=== PATIENT | male | born 1940 | race Caucasian/White ===

== ENCOUNTER 2018-02-21 17:26 | Inpatient (IN) ==
[2018-02-21] MEDS ORDERED: Isovue-370 500 ML INFUS..BTL IV ONE (17:38)
[2018-02-21 17:52] LABS: Hemoglobin 14.5 g/dL (12.9-16.9); Mean Corpuscular HGB Conc 32.2 g/dL (31.6-35.5); Mean Corpuscular Hemoglobin 27.2 pg (28.0-33.3); Mean Corpuscular Volume 84.3 fL (83.0-100.0); Mean Platelet Volume 12.4 fL (9.4-12.4); Platelet Count 235 K/mcL (140-400); Red Blood Count 5.34 M/mcL (4.19-5.50); Red Cell Distribution Width 15.5 % (11.5-14.5)
[2018-02-21 18:02] LABS: INR 1.1
[2018-02-21 18:05] LABS: Activated Partial Thrombo Time 30.5 Seconds (26.0-36.0)
--- NOTE | 2018-02-21 18:15 | Emergency Department Note ---
Disposition Clinical Impression: Cerebellar infarct, BERTHA (acute kidney injury) Disposition: Admitted As Inpatient Condition: Good Referrals: Jeannie Au MD [Non-Partnered Physician] - Forms: ED Satisfaction Letter Time of Disposition: 20:47 General Adult HPI - General Chief complaint: ED Neuro Symptoms/Deficit Stated complaint: DIZZY// BLURRED VISION// N/V Time Seen by Provider: 02/21/18 17:38 Source: patient, family Mode of arrival: wheelchair Limitations: no limitations Nursing Notes Reviewed: Yes Vital Signs Reviewed: Yes - History of Present Illness HPI Narrative: Male patient presenting to emergency [place] today complaining of dizziness feeling. He was seen earlier today at [facility] and had a CT of his head as well as an EKG and lab work done that the daughter and the patient reported as being "normal." He was getting out of bed this morning whenever he felt very dizzy and fell down. He struck his head. He is on Plavix and aspirin. Denies any syncope. She denies any pain to his extremities at this time. He is mentating appropriately with an NIH of 0. No slurred speech. Patient does complain of he does occasionally feel like everything is spinning. He also complains of blurry vision to his left eye. Patient's pupils are constricted. He denies any fevers or chills. Denies any shortness of breath or chest pain. He denies any loss of vision. He denies any swelling to his extremities. No history of previous stroke. Denies any trouble urinating or defecating. No blood in his urine or stool. No dark stools. Pain Scale: 2 - Related Data Allergies Allergy/AdvReac Type Severity Reaction Status Date / Time No Known Allergies Allergy Verified 02/21/18 17:51 All systems ED: reviewed and negative except as stated. Review of Systems: As Per HPI Past Medical History - Past Medical History Attestation: Yes The following information was validated with the patient. Source: patient Medical history: Reports: hyperlipidemia, hypertension, myocardial infarction Psychiatric history: Reports: no psych history - Social History Smoking Status: Current every day smoker Smokeless Tobacco Status: No Alcohol use: Reports: none Drug use: Reports: none Physical Exam - General Limitations: no limitations General appearance: alert, in no apparent distress - Head Head exam: atraumatic, normocephalic, normal inspection - Eye Eye exam: Present: normal appearance, PERRL, EOMI - ENT ENT exam: normal exam, normal oropharynx, mucous membranes moist - Neck Neck exam: Present: normal inspection, full ROM, trachea midline - Chest Chest inspection: Present: normal inspection, symmetric chest wall rise - Respiratory Respiratory exam: Present: normal lung sounds bilaterally. Absent: respiratory distress, accessory muscle use - Cardiovascular Cardiovascular exam: Present: regular rate, normal rhythm, normal heart sounds - Abdominal Exam Abdominal exam: Present: soft, Non-Tender. Absent: tenderness, distention, guarding, rebound, rigidity, organomegaly, Callahan's sign, Rovsing's sign, tenderness at McBurney's Point - Extremities Exam Extremities exam: Present: normal inspection, full ROM, normal capillary refill. Absent: tenderness, pedal edema - Back Exam Back exam: Present: normal inspection, full ROM. Absent: tenderness - Neurological Exam Neurological exam: Present: alert, oriented X3, CN II-XII intact, other (good finger to nose and good [id number] bilaterally. Pupils are equal and reactive to light). Absent: motor sensory deficit - Psychiatric Psychiatric exam: Present: normal affect, normal mood. Absent: anxious - Skin Skin exam: Present: warm, dry, intact, normal color. Absent: rash, cyanosis, diaphoresis Course Course Narrative: Male patient denies any vision loss but does report vertiginous symptoms. We did get a MRI of patient's head due to his vertiginous complaint. This did show a punctate acute lacunar infarct in the cerebellum. I discussed this with the neurologist here as well as the hospitalist. We will admit patient to the hospital for new acute stroke. We did provide him with aspirin. He had an NIH of 0 whenever he came in and so has an NIH of 0. He is mentating appropriately with a GCS of 15. Does not appear to be in any acute distress. Other lab workup was significant for an BERTHA we did initially order a CT of his head tenisha ography however we canceled the secondary to his BERTHA. We will admit patient to hospital at this time. - Consultations Consultation #1: I spoke with Dr Booth. He is agreeable to keep the patient here. He states he will see the patient consult morning. He is requesting that we do keep the patient and as a stroke. Provide the patient with aspirin and do neuro checks. Time: 20:09 Vital Signs Temperature 97.4 F L 02/21/18 17:30 Pulse Rate 71 02/21/18 17:30 Respiratory Rate 18 02/21/18 17:30 Blood Pressure 153/87 02/21/18 17:30 O2 Sat by Pulse Oximetry 98 02/21/18 17:30 Temperature 97.4 F L 02/21/18 17:38 Pulse Rate 70 02/21/18 19:41 Respiratory Rate 16 02/21/18 17:38 Blood Pressure 188/77 02/21/18 19:41 O2 Sat by Pulse Oximetry 98 02/21/18 17:38 Oxygen Delivery Oxygen Delivery Room Air Medical Decision Making - Medical Records Medical records reviewed: Yes I reviewed the patient's medical records. - Lab Data Lab results reviewed: Yes I reviewed the patient's lab results. Result diagrams: 02/21/18 17:44 02/21/18 17:44 Lab Results 02/21/18 02/21/18 02/21/18 Range/Units 17:44 17:44 17:44 WBC 15.4 H (4.3-11.1) K/mcL RBC 5.34 (4.19-5.50) M/mcL Hgb 14.5 (12.9-16.9) g/dL Hct 45.0 (37.5-50.1) % MCV 84.3 (83.0-100.0) fL MCH 27.2 L (28.0-33.3) pg MCHC 32.2 (31.6-35.5) g/dL RDW 15.5 H (11.5-14.5) % Plt Count 235 (140-400) K/mcL MPV 12.4 (9.4-12.4) fL PT 12.0 (9.4-12.1) Seconds INR 1.1 APTT 30.5 (26.0-36.0) Seconds Sodium 139 (136-145) mEq/L Potassium 4.8 (3.5-5.1) mEq/L Chloride 104 (98-107) mEq/L Carbon Dioxide 23 (23-29) mEq/L BUN 28 H (8-23) mg/dL Creatinine 1.81 H (0.70-1.30) mg/dL Est GFR ( Amer) 44 L (> 60) Est GFR (Non-Af Amer) 36 L (> 60) BUN/Creatinine Ratio 15 (6-26) Glucose 130 H (70-105) mg/dL Calculated Osmolality 295 (280-300) Calcium 10.7 H (8.6-10.3) mg/dL Troponin I 0.03 (< 0.04) ng/mL Urine Color (Yellow) Urine Clarity (Clear) Urine pH (5.0-8.0) pH Units Ur Specific [place] (1.010-1.025) Urine Protein (Neg-Trace) mg/dL Urine Glucose (UA) (Normal) mg/dL Urine Ketones (Negative) mg/dL Urine Blood (Negative) Urine Nitrite (Negative) Urine Bilirubin (Negative) Urine Urobilinogen (Normal) mg/dL Ur Leukocyte Esterase (Negative) Urine Opiates Screen (Kpzlai=749) ng/mL Ur Barbiturates Screen (Mujoxb=036) ng/mL Ur Phencyclidine Scrn (Cutoff=25) ng/mL Ur Amphetamines Screen (Isehuv=1256) ng/mL U Benzodiazepines Scrn (Vtotil=522) ng/mL Urine Cocaine Screen (Cutoff= 300) ng/mL U Marijuana (THC) Screen (Cutoff = 50) ng/mL Ur Drug Screen Interp Ethyl Alcohol < 10 (Less than 10) mg/dL 02/21/18 02/21/18 Range/Units 18:23 18:23 WBC (4.3-11.1) K/mcL RBC (4.19-5.50) M/mcL Hgb (12.9-16.9) g/dL Hct (37.5-50.1) % MCV (83.0-100.0) fL MCH (28.0-33.3) pg MCHC (31.6-35.5) g/dL RDW (11.5-14.5) % Plt Count (140-400) K/mcL MPV (9.4-12.4) fL PT (9.4-12.1) Seconds INR APTT (26.0-36.0) Seconds Sodium (136-145) mEq/L Potassium (3.5-5.1) mEq/L Chloride (98-107) mEq/L Carbon Dioxide (23-29) mEq/L BUN (8-23) mg/dL Creatinine (0.70-1.30) mg/dL Est GFR ( Amer) (> 60) Est GFR (Non-Af Amer) (> 60) BUN/Creatinine Ratio (6-26) Glucose (70-105) mg/dL Calculated Osmolality (280-300) Calcium (8.6-10.3) mg/dL Troponin I (< 0.04) ng/mL Urine Color Yellow (Yellow) Urine Clarity Clear (Clear) Urine pH 5.5 (5.0-8.0) pH Units Ur Specific [place] >= 1.030 H (1.010-1.025) Urine Protein 100 H (Neg-Trace) mg/dL Urine Glucose (UA) Normal (Normal) mg/dL Urine Ketones Trace H (Negative) mg/dL Urine Blood Negative (Negative) Urine Nitrite Negative (Negative) Urine Bilirubin Small H (Negative) Urine Urobilinogen Normal (Normal) mg/dL Ur Leukocyte Esterase Small H (Negative) Urine Opiates Screen Negative (Sgreiv=460) ng/mL Ur Barbiturates Screen Negative (Dgjjwc=383) ng/mL Ur Phencyclidine Scrn Negative (Cutoff=25) ng/mL Ur Amphetamines Screen Negative (Eivgjn=1215) ng/mL U Benzodiazepines Scrn Negative (Ryxjnp=579) ng/mL Urine Cocaine Screen Negative (Cutoff= 300) ng/mL U Marijuana (THC) Screen Negative (Cutoff = 50) ng/mL Ur Drug Screen Interp See Below Ethyl Alcohol (Less than 10) mg/dL - Radiology Data Radiology results reviewed: Yes I reviewed the patient's radiology results. Chest X-Ray 02/21/18 17:38 IMPRESSION: 1. Suboptimal exam, expiratory phase of respiration. 2. Bibasilar interstitial nodular densities may be related to pneumonitis but are nonspecific. Follow-up full inspiration PA and lateral chest may be useful for better characterization of pulmonary findings. D/ / Thomas Fontenot / Thomas Fontenot Interpreting Provider: Thomas Fontenot Head CT 02/21/18 17:38 IMPRESSION: No acute intracranial abnormality. Senescent changes with parenchymal volume loss sequela of mild chronic microvascular ischemic changes. D/ / Enedina Pearl MD / Enedina Pearl MD Interpreting Provider: Enedina Pearl MD Brain MRI 02/21/18 18:43 IMPRESSION: 1. Examination degraded by patient motion artifact. 2. Punctate acute lacunar infarction in the right cerebellum. No associated hemorrhage. 3. Parenchymal volume loss and sequela of chronic microvascular ischemic changes and old bilateral basal ganglia lacunar infarctions. D/ / Enedina Pearl MD / Enedina Pearl MD Interpreting Provider: Enedina Pearl MD - EKG Data EKG #1 EKG attestation: Yes I reviewed and interpreted this EKG. EKG results narrative: Normal sinus rhythm at a rate of 73. PA interval is 151. QRS duration is 106. QT is 47. QTC is 449. No signs of acute ischemia. Significant amount of artifact. Good R-wave progression.
[2018-02-21 18:18] LABS: BUN/Creatinine Ratio 15 (6-26); Blood Urea Nitrogen 28 mg/dL (8-23); Calcium 10.7 mg/dL (8.6-10.3); Carbon Dioxide 23 mEq/L (23-29); Chloride 104 mEq/L (98-107); Ethanol < 10 mg/dL (Less than 10); Glucose 130 mg/dL (70-105); Osmolality,Calculated 295 (280-300); Potassium 4.8 mEq/L (3.5-5.1); Sodium 139 mEq/L (136-145); Troponin I 0.03 ng/mL (< 0.04); eGFR For Non-African Americans 36 (> 60)
[2018-02-21 19:00] LABS: Bilirubin,Urine Small (Negative); Blood,Urine Negative (Negative); Clarity,Urine Clear (Clear); Color,Urine Yellow (Yellow); Glucose,Urine (UA) Normal (Normal); Ketones,Urine Trace mg/dL (Negative); Leukocyte Esterase,Urine Small (Negative); Nitrite,Urine Negative (Negative); PH,Urine 5.5 pH Units (5.0-8.0); Protein,Urine 100 mg/dL (Neg-Trace); Specific Gravity,Urine >= 1.030 (1.010-1.025); Urobilinogen,Urine Normal (Normal)
[2018-02-21 19:01] LABS: Amphetamine Screen,Urine Negative ng/mL (Cutoff=1000); Barbiturate Screen,Urine Negative ng/mL (Cutoff=200); Benzodiazepines Screen,Urine Negative ng/mL (Cutoff=200); Cannabinoid Screen,Urine Negative ng/mL (Cutoff = 50); Cocaine Screen,Urine Negative ng/mL (Cutoff= 300); Opiate Screen,Urine Negative ng/mL (Cutoff=300); Phencyclidine Screen,Urine Negative ng/mL (Cutoff=25)
[2018-02-21 19:07] LABS: Hyaline Casts,Urine Few per lpf (None-Few); Squamous Epithelial Cell,Urine Many per lpf (None-Few); WBC,Urine 30-50 per hpf (0-3)
[2018-02-21] MEDS ORDERED: Aspirin 325 MG TABLET PO ONE (19:53)
--- NOTE | 2018-02-21 20:03 | Emergency Department Note ---
Disposition Clinical Impression: Cerebellar infarct Disposition: Admitted As Inpatient Forms: ED Satisfaction Letter General Adult HPI - General Chief complaint: ED Neuro Symptoms/Deficit Stated complaint: DIZZY// BLURRED VISION// N/V Time Seen by Provider: 02/21/18 17:38 Source: patient, family Mode of arrival: wheelchair Limitations: no limitations - History of Present Illness Pain Scale: 0 - Related Data Allergies Allergy/AdvReac Type Severity Reaction Status Date / Time No Known Allergies Allergy Verified 02/21/18 17:51 Past Medical History - Past Medical History Medical history: Reports: hyperlipidemia, hypertension, myocardial infarction Psychiatric history: Reports: no psych history - Social History Smoking Status: Current every day smoker Smokeless Tobacco Status: No Alcohol use: Reports: none Drug use: Reports: none Physical Exam - General Limitations: no limitations General appearance: alert, in no apparent distress Course Vital Signs Temperature 97.4 F L 02/21/18 17:30 Pulse Rate 71 02/21/18 17:30 Respiratory Rate 18 02/21/18 17:30 Blood Pressure 153/87 02/21/18 17:30 O2 Sat by Pulse Oximetry 98 02/21/18 17:30 Temperature 97.4 F L 02/21/18 17:38 Pulse Rate 70 02/21/18 19:41 Respiratory Rate 16 02/21/18 17:38 Blood Pressure 188/77 02/21/18 19:41 O2 Sat by Pulse Oximetry 98 02/21/18 17:38 Oxygen Delivery Oxygen Delivery Room Air Medical Decision Making - Lab Data Result diagrams: 02/21/18 17:44 02/21/18 17:44 Lab Results 02/21/18 02/21/18 02/21/18 Range/Units 17:44 17:44 17:44 WBC 15.4 H (4.3-11.1) K/mcL RBC 5.34 (4.19-5.50) M/mcL Hgb 14.5 (12.9-16.9) g/dL Hct 45.0 (37.5-50.1) % MCV 84.3 (83.0-100.0) fL MCH 27.2 L (28.0-33.3) pg MCHC 32.2 (31.6-35.5) g/dL RDW 15.5 H (11.5-14.5) % Plt Count 235 (140-400) K/mcL MPV 12.4 (9.4-12.4) fL PT 12.0 (9.4-12.1) Seconds INR 1.1 APTT 30.5 (26.0-36.0) Seconds Sodium 139 (136-145) mEq/L Potassium 4.8 (3.5-5.1) mEq/L Chloride 104 (98-107) mEq/L Carbon Dioxide 23 (23-29) mEq/L BUN 28 H (8-23) mg/dL Creatinine 1.81 H (0.70-1.30) mg/dL Est GFR ( Amer) 44 L (> 60) Est GFR (Non-Af Amer) 36 L (> 60) BUN/Creatinine Ratio 15 (6-26) Glucose 130 H (70-105) mg/dL Calculated Osmolality 295 (280-300) Calcium 10.7 H (8.6-10.3) mg/dL Troponin I 0.03 (< 0.04) ng/mL Urine Color (Yellow) Urine Clarity (Clear) Urine pH (5.0-8.0) pH Units Ur Specific [place] (1.010-1.025) Urine Protein (Neg-Trace) mg/dL Urine Glucose (UA) (Normal) mg/dL Urine Ketones (Negative) mg/dL Urine Blood (Negative) Urine Nitrite (Negative) Urine Bilirubin (Negative) Urine Urobilinogen (Normal) mg/dL Ur Leukocyte Esterase (Negative) Urine Opiates Screen (Lqwksz=183) ng/mL Ur Barbiturates Screen (Loople=908) ng/mL Ur Phencyclidine Scrn (Cutoff=25) ng/mL Ur Amphetamines Screen (Nroqhe=5845) ng/mL U Benzodiazepines Scrn (Vvlcmv=188) ng/mL Urine Cocaine Screen (Cutoff= 300) ng/mL U Marijuana (THC) Screen (Cutoff = 50) ng/mL Ur Drug Screen Interp Ethyl Alcohol < 10 (Less than 10) mg/dL 02/21/18 02/21/18 Range/Units 18:23 18:23 WBC (4.3-11.1) K/mcL RBC (4.19-5.50) M/mcL Hgb (12.9-16.9) g/dL Hct (37.5-50.1) % MCV (83.0-100.0) fL MCH (28.0-33.3) pg MCHC (31.6-35.5) g/dL RDW (11.5-14.5) % Plt Count (140-400) K/mcL MPV (9.4-12.4) fL PT (9.4-12.1) Seconds INR APTT (26.0-36.0) Seconds Sodium (136-145) mEq/L Potassium (3.5-5.1) mEq/L Chloride (98-107) mEq/L Carbon Dioxide (23-29) mEq/L BUN (8-23) mg/dL Creatinine (0.70-1.30) mg/dL Est GFR ( Amer) (> 60) Est GFR (Non-Af Amer) (> 60) BUN/Creatinine Ratio (6-26) Glucose (70-105) mg/dL Calculated Osmolality (280-300) Calcium (8.6-10.3) mg/dL Troponin I (< 0.04) ng/mL Urine Color Yellow (Yellow) Urine Clarity Clear (Clear) Urine pH 5.5 (5.0-8.0) pH Units Ur Specific [place] >= 1.030 H (1.010-1.025) Urine Protein 100 H (Neg-Trace) mg/dL Urine Glucose (UA) Normal (Normal) mg/dL Urine Ketones Trace H (Negative) mg/dL Urine Blood Negative (Negative) Urine Nitrite Negative (Negative) Urine Bilirubin Small H (Negative) Urine Urobilinogen Normal (Normal) mg/dL Ur Leukocyte Esterase Small H (Negative) Urine Opiates Screen Negative (Yuneev=541) ng/mL Ur Barbiturates Screen Negative (Cazwrh=527) ng/mL Ur Phencyclidine Scrn Negative (Cutoff=25) ng/mL Ur Amphetamines Screen Negative (Bntnsi=7249) ng/mL U Benzodiazepines Scrn Negative (Pkanbz=811) ng/mL Urine Cocaine Screen Negative (Cutoff= 300) ng/mL U Marijuana (THC) Screen Negative (Cutoff = 50) ng/mL Ur Drug Screen Interp See Below Ethyl Alcohol (Less than 10) mg/dL Attestation Statement - Attestation Attestation: I examined this patient and my medical decision-making was reviewed with the Resident Physician. I agree with the documented findings, disposition and treatment plan as described except to the extent set forth below. 77 year old male presemts with vertiginous feelings that startd about 1300 today s/p having a fall yesterday and being evaluated at [facility] with negative head and neck Ct. It appears he has a punctuate lacunar infarct in the cerebellum. We will admit to [facility]
[2018-02-21 20:19] LABS: Bacteria,Urine Few per hpf (None-Few); RBC,Urine 0-3 per hpf (0-3)
[2018-02-22] MEDS ORDERED: Naloxone 0.4 MG/ML INJ IVP PRN (01:35)
[2018-02-22] MEDS: *HR* Heparin 5,000 UNIT/ML VIAL SQ SCH ×2 (06:00→18:44)
[2018-02-22 06:11] LABS: Hematocrit 38.7 % (37.5-50.1); Mean Corpuscular HGB Conc 32.8 g/dL (31.6-35.5); Mean Corpuscular Hemoglobin 27.3 pg (28.0-33.3); Mean Corpuscular Volume 83.2 fL (83.0-100.0); Mean Platelet Volume 12.7 fL (9.4-12.4); Platelet Count 202 K/mcL (140-400); Red Blood Count 4.65 M/mcL (4.19-5.50); Red Cell Distribution Width 15.5 % (11.5-14.5)
[2018-02-22 06:12] LABS: Hemoglobin 12.7 g/dL (12.9-16.9)
[2018-02-22 06:29] LABS: Calcium 9.6 mg/dL (8.6-10.3); Potassium 4.1 mEq/L (3.5-5.1)
[2018-02-22] MEDS ORDERED: 0.9 % Sodium Chloride 1,000 ML IVC ONE ×2 (07:21→10:29)
--- NOTE | 2018-02-22 07:25 | Internal Med History&Physical ---
Date of Encounter: 02/22/18 Time of Encounter: 00:50 Internal Medicine - H&P: HPI Chief complaint: Cerebrovascular accident Admitted From: Emergency Dept Plans for Post Hospital Care: Home History of present illness: Mr. Cancino is a 77 year old male Patient presented to the emergency room with initial complaints of dizziness. He had been seen at [facility] emergency room earlier for the same complaint and a CT was done of his head as well as an EKG. Ultimately these exams were reported as normal. He then presented to [facility] for continued dizziness. He states that he has had several falls at home including this morning where he is fell out of bed and hit his head on the door on his way [place] n. Denies losing consciousness as well as generalized weakness. He did indicate that he had some blurry vision in his left eye, but otherwise no complaints. In the ER CBC showed elevated white count of 15.4, and BMP showed elevated BUN and creatinine. Urinalysis was negative for blood and nitrites. There was small leukocyte esterase. Urine tox screen was negative. Chest x-ray was sub-optimal but may show interstitial nodular opacities. Head CT was negative for acute intracranial abnormalities. A brain MRI was ordered and showed an acute punctate lacunar infarction in the right cerebellum with no hemorrhage. Neurology was called from the emergency room who agreed to consult on the patient in the morning. Patient was admitted for further management. Upon my assessment patient states that he feels, "pretty good now," denies chest pain, nausea, vomiting, diarrhea, constipation and abdominal pain. He does smoke a pipe daily. Patient also states that the blurriness in his left eye has resolved and he denies unilateral limb weakness. He does have a slight speech impediment at baseline, which she states is no different now than it was before. Past Med Surg Social Fam HX - Past Medical History Medical history: hyperlipidemia, hypertension, myocardial infarction Psychiatric history: no psych history - Past Surgical History Surgical History: cataract Additional surgical history: Heart Stent x 2 - Social History Smoking Status: Current every day smoker Smokeless Tobacco Status: No Alcohol use: none Drug use: none - Family History Father Hx Family Neurologic Disorders: Yes (stroke) Internal Medicine - H&P: Meds Aspirin [Lo-Dose Aspirin EC] 81 mg PO DAILY 02/21/18 [History] Atorvastatin Calcium [Lipitor] 80 mg PO HS 02/21/18 [History] Clopidogrel [Plavix] 75 mg PO DAILY 02/21/18 [History] Diltiazem CD (24hr) [Cardizem CD] 240 mg PO DAILY 02/21/18 [History] Ergocalciferol (VITAMIN D2) [Vitamin D2] 5,000 unit PO DAILY 02/21/18 [History] Ergocalciferol (VITAMIN D2) [Vitamin D2] 5,000 unit PO DAILY 02/21/18 [History] Metoprolol Succinate [Toprol Xl] 100 mg PO DAILY 02/21/18 [History] Pantoprazole Sodium [Protonix] 40 mg PO DAILY 02/21/18 [History] Tamsulosin HCl [Flomax] 0.4 mg PO DAILY 02/21/18 [History] Allergy/AdvReac Type Severity Reaction Status Date / Time No Known Allergies Allergy Verified 02/21/18 17:51 All Systems PM: A 10-system review of systems was performed and is negative for pertinent findings except as documented above in the HPI. - Constitutional Vitals: Temp Pulse Resp BP Pulse Ox 98.7 F 62 17 157/78 95 02/22/18 06:56 02/22/18 06:56 02/22/18 06:56 02/22/18 06:56 02/22/18 06:56 General appearance: Present: A&O X 3, pleasant, answers questions appropriately Exam: As above - Head Head exam: Present: normal inspection - Eye Eye exam: Present: EOMI, normal appearance - Neck Neck exam general surgery: Absent: tenderness - Respiratory Respiratory exam: Present: CTAB. Absent: decreased breath sounds, respiratory distress, wheezes - Cardiovascular Cardiovascular exam: Present: RRR. Absent: diastolic murmur, systolic murmur - GI/Abdominal GI/Abdominal exam: Present: normal bowel sounds, soft. Absent: tenderness - Extremities Exam Extremities exam: Present: warm, radial pulses palpable and symmetrical. Absent: calf tenderness, pedal edema, tenderness - Neurological Exam Neurological exam: Present: no focal deficits, strengths equal and symetr throughout. Absent: motor sensory deficit, facial droop, speech deficit - Skin Skin exam: Present: dry, normal color, warm Internal Med - H&P Results - Labs CBC & Chem 7: 02/22/18 05:59 02/22/18 05:59 Labs: Short CBC 02/21/18 02/22/18 Range/Units 17:44 05:59 WBC 15.4 H 9.8 (4.3-11.1) K/mcL Hgb 14.5 12.7 L D (12.9-16.9) g/dL Hct 45.0 38.7 (37.5-50.1) % Plt Count 235 202 (140-400) K/mcL BMP 02/21/18 02/22/18 17:44 05:59 Sodium 139 138 Potassium 4.8 4.1 Chloride 104 108 H Carbon Dioxide 23 20 L BUN 28 H 28 H Creatinine 1.81 H 1.68 H Glucose 130 H 96 Calcium 10.7 H 9.6 Cardiac Enzymes 02/21/18 Range/Units 17:44 Troponin I 0.03 (< 0.04) ng/mL Urine 02/21/18 Range/Units 18:23 Urine Color Yellow (Yellow) Urine Clarity Clear (Clear) Urine pH 5.5 (5.0-8.0) pH Units Ur Specific [place] >= 1.030 H (1.010-1.025) Urine Protein 100 H (Neg-Trace) mg/dL Urine Glucose (UA) Normal (Normal) mg/dL - Impressions ITS Impressions Chest X-Ray 02/21/18 17:38 IMPRESSION: 1. Suboptimal exam, expiratory phase of respiration. 2. Bibasilar interstitial nodular densities may be related to pneumonitis but are nonspecific. Follow-up full inspiration PA and lateral chest may be useful for better characterization of pulmonary findings. D/ / Thomas Fontenot / Thomas Fontenot Interpreting Provider: Thomas Fontenot Head CT 02/21/18 17:38 IMPRESSION: No acute intracranial abnormality. Senescent changes with parenchymal volume loss sequela of mild chronic microvascular ischemic changes. D/ / Enedina Pearl MD / Enedina Pearl MD Interpreting Provider: Enedina Pearl MD Brain MRI 02/21/18 18:43 IMPRESSION: 1. Examination degraded by patient motion artifact. 2. Punctate acute lacunar infarction in the right cerebellum. No associated hemorrhage. 3. Parenchymal volume loss and sequela of chronic microvascular ischemic changes and old bilateral basal ganglia lacunar infarctions. D/ / Enedina Pearl MD / Enedina Pearl MD Interpreting Provider: Enedina Pearl MD - Assessment and plan (1) Cerebellar infarct Current Visit: Yes Status: Acute Assessment and plan: As evidenced by the patient's MRI. Neurology consulted from the ER. Follow up recommendations from neurology. Echocardiogram in AM Carotid dopplers in AM Neuro checks ASA PT/OT consult (2) BERTHA (acute kidney injury) Current Visit: Yes Status: Acute Assessment and plan: Elevated BUN and creatinine on initial lab work. Start IV fluids Recheck labs in AM (3) Blurry vision, left eye Current Visit: Yes Status: Acute Assessment and plan: Now resolved, could be related to stroke Neurology consult in AM (4) Current nicotine use Current Visit: Yes Status: Acute Assessment and plan: Patient smokes a pipe Encourage cessation (5) Opacity of lung on imaging study Current Visit: Yes Status: Acute Assessment and plan: Patient had a chest x-ray that showed possible interstitial nodular opacities. Radiology recommended getting a PA/lateral view. Patient does have elevated white count, but no other suspicion of pneumonia. Follow up repeat chest x-ray (6) DVT prophylaxis Current Visit: Yes Status: Acute Assessment and plan: Subcutaneous heparin - Time Spent With Patient Total time spent is greater than 50% in coordination of care (as documented) at patient's floor/unit and/or counseling patient: Greater than 35 minutes
--- NOTE | 2018-02-22 13:34 | Internal Med Progress Note ---
Hospitalist Progress Note - Encounter Date of Encounter: 02/22/18 Time of Encounter: 09:00 - Subjective Interval History: Mr. Cancino is a 77 year old male with known PMH of hyperlipidemia, hypertension, and CAD on ASA and Plavix pt presented to the emergency room with initial complaints of dizziness. He had been seen at [facility] emergency room earlier for the same complaint and a CT was done of his head as well as an EKG. Ultimately these exams were reported as normal. He then presented to [facility] for continued dizziness. He states that he has had several falls at home including this morning where he is fell out of bed and hit his head on the door on his way down. Denies losing consciousness as well as generalized weakness. Head CT was negative for acute intra cranial abnormalities. A brain MRI showed an acute punctate lacunar infarction in the right cerebellum with no hemorrhage. Pt is alert, awake and O x 3, denied any CP / SOB. Denied any weakness / no speech abnormalities. - Exam Vitals: Temp Pulse Resp BP Pulse Ox 98.3 F 60 17 130/82 95 02/22/18 11:36 02/22/18 11:36 02/22/18 06:56 02/22/18 11:36 02/22/18 06:56 Exam: Gen: Alert, awake, Oriented to time,place and person Chest: Diminished breath sounds B/L, No wheezing, No crackles, No rales Heart: S1S2+ RRR No murmurs Abd: Soft, NT, BS +, No organomegaly Ext: No edema, pulses are palpable, No calf tenderness Neuro : CNX 2-12 intact, No focal neuro deficits noticed Skin: No rash. - Assessment and Plan (1) BERTHA (acute kidney injury) Current Visit: Yes Status: Acute Assessment and Plan: Mostly due to dehydration Improving slowly Cont IVF avoid nephrotoxic medications (2) Cerebellar infarct Current Visit: Yes Status: Acute Assessment and Plan: Acute Rt cerebellar infarct noticed on Brain MRI Cont ASA and Plavix Cont statin Waiting on Neuro eval PT / OT recommend home PT / PT 2D Echo and Carotid doppler - P (3) Current nicotine use Current Visit: Yes Status: Acute Assessment and Plan: Counseled to quit smoking placed on nicotine patch (4) DVT prophylaxis Current Visit: Yes Status: Acute Assessment and Plan: on SQ Heparin (5) Opacity of lung on imaging study Current Visit: Yes Status: Acute Assessment and Plan: Will repeat CXR PA /Lat Pt denied any URI symptoms. (6) Hypertension Current Visit: Yes Status: Acute Assessment and Plan: resumed home meds - Time Spent with Patient Total time spent is greater than 50% in coordination of care (as documented) at patient's floor/unit and/or counseling patient: Internal Medicine: Result - Labs CBC & Chem 7: 02/22/18 05:59 02/22/18 05:59 Labs: Short CBC 02/21/18 02/22/18 Range/Units 17:44 05:59 WBC 15.4 H 9.8 (4.3-11.1) K/mcL Hgb 14.5 12.7 L D (12.9-16.9) g/dL Hct 45.0 38.7 (37.5-50.1) % Plt Count 235 202 (140-400) K/mcL BMP 02/21/18 02/22/18 17:44 05:59 Sodium 139 138 Potassium 4.8 4.1 Chloride 104 108 H Carbon Dioxide 23 20 L BUN 28 H 28 H Creatinine 1.81 H 1.68 H Glucose 130 H 96 Calcium 10.7 H 9.6 Cardiac Enzymes 02/21/18 Range/Units 17:44 Troponin I 0.03 (< 0.04) ng/mL Urine 02/21/18 Range/Units 18:23 Urine Color Yellow (Yellow) Urine Clarity Clear (Clear) Urine pH 5.5 (5.0-8.0) pH Units Ur Specific [place] >= 1.030 H (1.010-1.025) Urine Protein 100 H (Neg-Trace) mg/dL Urine Glucose (UA) Normal (Normal) mg/dL - ABG Interpretation ABG results: PT/INR, D-dimer PT 12.0 Seconds (9.4-12.1) 02/21/18 17:44 - Impressions Impressions Chest X-Ray 02/21/18 17:38 IMPRESSION: 1. Suboptimal exam, expiratory phase of respiration. 2. Bibasilar interstitial nodular densities may be related to pneumonitis but are nonspecific. Follow-up full inspiration PA and lateral chest may be useful for better characterization of pulmonary findings. D/ / Thomas Fontenot / Thomas Fontenot Interpreting Provider: Thomas Fontenot Head CT 02/21/18 17:38 IMPRESSION: No acute intracranial abnormality. Senescent changes with parenchymal volume loss sequela of mild chronic microvascular ischemic changes. D/ / Enedina Pearl MD / Enedina Pearl MD Interpreting Provider: Enedina Pearl MD Brain MRI 02/21/18 18:43 IMPRESSION: 1. Examination degraded by patient motion artifact. 2. Punctate acute lacunar infarction in the right cerebellum. No associated hemorrhage. 3. Parenchymal volume loss and sequela of chronic microvascular ischemic changes and old bilateral basal ganglia lacunar infarctions. D/ / Enedina Pearl MD / Enedina Pearl MD Interpreting Provider: Enedina Pearl MD Consult Discharge Plan - Plan Referrals: Jeannie Au MD [Primary Care Provider] - (6) Hypertension Qualifiers: Hypertension type: essential hypertension Qualified Code(s): I10 - Essential (primary) hypertension
--- NOTE | 2018-02-22 15:37 | Neurology - Consult Note ---
Date of Encounter: 02/22/18 Time of Encounter: 16:19 Assessment and Plan (1) Cerebellar infarct Current Visit: Yes Status: Acute It is my believe that the primary cause for the dizziness this patient was experiencing was is uncontrolled hypertension. His blood pressure was as high as 192/98 during this admission. However he did not experience nystagmus. He does not experience vertigo. The infarct is quite frankly too small to be symptomatic. It is only a punctate lesion in the right cerebellar hemisphere. However I do believe that his uncontrolled hypertension likely resulted in vasospasm causing the small infarct. He does have multiple stroke risk factors which include hyperlipidemia, hypertension, coronary artery disease as well as tobacco smoking. At this point he is pretty much back to his normal baseline and I would simply recommend following up with his primary care provider after discharge to monitor his risk factors. Perhaps home monitoring may also be of benefit. I did personally review the MRI scan of the brain. Echocardiogram and carotid Doppler studies are yet pending. I will reevaluate him at your discretion. History of Present Illness HPI: Mr. Cancino is a 77 year old male who was seen for neurologic consultation at the request of an ED physician regarding chief complaint of dizziness as well as a small punctate lesion in the right cerebellar hemisphere. Mr. carvajal apparently has been experiencing intermittent complaints of dizziness. He presented to an outside hospital with these complaints apparently had a CT scan of the head done in ultimately was sent to [facility] for further assessment and workup. He has had several falls at home most recently occurring on the morning of admission. Apparently he fell out of bed and did strike his head on the door on his way down. He is awake and alert upon arrival. MRI scan of the brain was obtained in the ED and did reveal a punctate infarct in the right cerebellar hemisphere. No other abnormalities were identified. Upon arrival patient's blood pressure was extremely elevated the h ighest was 192/98. He has had no further episodes of dizziness since admission. He denies actual vertigo or spinning. Past Med Surg Social Fam HX - Past Medical History Medical history: hyperlipidemia, hypertension, myocardial infarction Psychiatric history: no psych history - Past Surgical History Surgical History: cataract Additional surgical history: Heart Stent x 2 - Social History Smoking Status: Current every day smoker Smokeless Tobacco Status: No Alcohol use: none Drug use: none - Family History Father Hx Family Neurologic Disorders: Yes (stroke) Medications and Allergies Aspirin [Lo-Dose Aspirin EC] 81 mg PO DAILY 02/21/18 [History] Atorvastatin Calcium [Lipitor] 80 mg PO HS 02/21/18 [History] Clopidogrel [Plavix] 75 mg PO DAILY 02/21/18 [History] Diltiazem CD (24hr) [Cardizem CD] 240 mg PO DAILY 02/21/18 [History] Ergocalciferol (VITAMIN D2) [Vitamin D2] 5,000 unit PO DAILY 02/21/18 [History] Ergocalciferol (VITAMIN D2) [Vitamin D2] 5,000 unit PO DAILY 02/21/18 [History] Metoprolol Succinate [Toprol Xl] 100 mg PO DAILY 02/21/18 [History] Pantoprazole Sodium [Protonix] 40 mg PO DAILY 02/21/18 [History] Tamsulosin HCl [Flomax] 0.4 mg PO DAILY 02/21/18 [History] Allergy/AdvReac Type Severity Reaction Status Date / Time No Known Allergies Allergy Verified 02/21/18 17:51 All Systems: The remainder of the systems were reviewed and are negative Review of Systems: The balance of the systems review is negative. Physical Examination - Vital Signs Vital Signs: Initial Vital Signs Temp Pulse Resp BP Pulse Ox 97.4 F L 71 18 153/87 98 02/21/18 17:30 02/21/18 17:30 02/21/18 17:30 02/21/18 17:30 02/21/18 17:30 - Neurologic Detailed motor examination: full strength in all major muscle groups Motor examination - right side: 5/5: deltoids, biceps, triceps, wrist flexion, wrist extension, m1 armor crewman, hip flexors, tibialis Anterior, quadriceps, toe extension (EHL), plantarflexion Motor examination - left side: 5/5: deltoids, biceps, triceps, wrist flexion, wrist extension, hip flexors, m1 armor crewman, quadriceps, tibialis Anterior, toe extension (EHL), plantarflexion Mental Status Examination: awake, alert, oriented to person, oriented to place, oriented to time, follows commands appropriately, answers questions appropr iately, no agnosia, no aphasia, no aproxia Cranial nerve examination: PERRL, EOMI, visual hager intact, corneal reflexes brisk symmetrically, sensory to face intact, mastication intact, no facial asymmetry is present, no dysarthria, hearing is intact symmetrically, soft pal ate elevates bilaterally upon phonation, gag reflex intact, flexes SCM and trapezius muscles symmetrically with full power, tongue protrudes midline, no atrophy or facial fasiculations present Cerebellar examination: no dysmetria, performs finger to nose and heel to blum symmetrically without ataxia, no gait ataxia, no truncal ataxia, no difficulty with rapid alternating movements Results - Laboratory Findings CBC and BMP: 02/22/18 05:59 02/22/18 05:59 Abnormal lab findings: Abnormal lab results Hgb 12.7 g/dL (12.9-16.9) L D 02/22/18 05:59 MCH 27.3 pg (28.0-33.3) L 02/22/18 05:59 RDW 15.5 % (11.5-14.5) H 02/22/18 05:59 MPV 12.7 fL (9.4-12.4) H 02/22/18 05:59 Chloride 108 mEq/L (98-107) H 02/22/18 05:59 Carbon Dioxide 20 mEq/L (23-29) L 02/22/18 05:59 BUN 28 mg/dL (8-23) H 02/22/18 05:59 Creatinine 1.68 mg/dL (0.70-1.30) H 02/22/18 05:59 Est GFR ( Amer) 48 (> 60) L 02/22/18 05:59 Est GFR (Non-Af Amer) 40 (> 60) L 02/22/18 05:59 Ur Specific [place] >= 1.030 (1.010-1.025) H 02/21/18 18:23 Urine Protein 100 mg/dL (Neg-Trace) H 02/21/18 18:23 Urine Ketones Trace mg/dL (Negative) H 02/21/18 18:23 Urine Bilirubin Small (Negative) H 02/21/18 18:23 Ur Leukocyte Esterase Small (Negative) H 02/21/18 18:23 Urine Microscopic WBC 30-50 per hpf (0-3) H 02/21/18 18:23 Ur Squamous Epith Cells Many per lpf (None-Few) H 02/21/18 18:23 Ur Culture Indicated? NO. (NO) A 02/21/18 18:23 Consult Discharge Plan - Plan Referrals: Jeannie Au MD [Primary Care Provider] -
[2018-02-22] MEDS: Metoprolol XL (24 HR) Succ 50 MG TAB.ER.24H PO SCH (16:54)
[2018-02-22] MEDS: Diltiazem CD (24hr) 240 MG CAPSULE PO SCH (16:54)
[2018-02-22] MEDS: Aspirin Enteric Coated 81 MG Tablet PO SCH (17:03)
--- NOTE | 2018-02-22 21:03 | Electrocardiograph Report ---
[address] [place] [address] Test Date: 2018-02-21 Pat Name: Kervin Cancino Department: [id number] Room: [facility] Gender: M Regulator Tester: : 1940 Requested By: Delgado Hidalgo Order Number: [id number] Reading MD: Petra Valderrama Measurements Intervals [place] Rate: 73 P: 50 VT: 151 QRS: 13 QRSD: 106 T: -13 QT: 407 QTc: 449 Interpretive Statements Sinus rhythm Inferior infarct, recent Electronically Signed On 02-22-2018 21:02:02 EDT by Petra Valderrama
[2018-02-23] MEDS: *HR* Heparin 5,000 UNIT/ML VIAL SQ SCH ×2 (05:49→18:27)
[2018-02-23] MEDS ORDERED: 0.9 % Sodium Chloride 1,000 ML IVC SCH (08:30)
[2018-02-23] MEDS: Diltiazem CD (24hr) 240 MG CAPSULE PO SCH ×2 (08:50→08:51)
[2018-02-23] MEDS: Cholecalciferol (D-3) 1,000 UNIT TABLET PO SCH (08:50)
[2018-02-23] MEDS: Aspirin Enteric Coated 81 MG Tablet PO SCH (08:50)
[2018-02-23] MEDS: Metoprolol XL (24 HR) Succ 50 MG TAB.ER.24H PO SCH ×2 (08:50)
[2018-02-23] MEDS ORDERED: Metoprolol XL (24 HR) Succ 50 MG TAB.ER.24H PO SCH (09:00)
[2018-02-23] MEDS ORDERED: Diltiazem CD (24hr) 240 MG CAPSULE PO SCH (09:00)
--- NOTE | 2018-02-23 09:52 | Discharge Summary ---
Orders not resulted at time of discharge: Pending orders 02/23/18 08:30 retroperitoneal ultrasound - limited [US retroperitoneal limited] [US] Routine 02/23/18 08:58 Parathyroid Hormone Intact Routine Date of Encounter: 02/23/18 Time of Encounter: 08:45 - Discharge Diagnosis (1) Dizziness Priority: Primary Status: Acute (2) BERTHA (acute kidney injury) Priority: Secondary Status: Acute (3) Cerebellar infarct Priority: Secondary Status: Acute (4) DVT prophylaxis Priority: Secondary Status: Acute (5) Current nicotine use Priority: Secondary Status: Acute (6) Opacity of lung on imaging study Priority: Secondary Status: Acute (7) Hypertension Priority: Secondary Status: Acute Qualifiers: Hypertension type: essential hypertension Qualified Code(s): I10 - Essential (primary) hypertension Hospital course: Mr. Cancino is a 77 year old male. Hospital day 1. Pt has a chronic h/o HLD, HTN, CAD and previous NM. He presented intially to [facility] ED c/o dizziness. CT of the head and EKG were performed at [facility] and were normal. Pt then presented to [facility] ED for the same complaint of dizziness. He admitted to falling that morning and hitting his head on the way down. A CT of the head was performed and was negative. A brain MRI showed acute punctate lacunar infarct in the Right cerebellum without hemmorhage. Neurology was consulted and stated that the right cerebellar infarct was too small to be symptomatic and attributed the dizziness to uncontrolled HTN. Echocardiography was performed and revealed mild LV diastolic dysfunction, and mild valvular regurgitation in all 4 main cardiac valves. Carotid doppler showed minimal plaque throughout bilaterally. Chest X ray showed interstitial nodular opacities in bilateral lower lobes which have improved. LLL infiltrate was also seen. On initial lab work BUN and Cr were elevated. Pt received 2L of IVF. Cr improved to 1.79 from 1.81, BUN remains unchanged at 28. Today the patient states he is doing well and denies fever, H/A, vision changes, numbness, weakness, dizziness, SOB, chest pain/pressure, diaphoresis, NVD, abdominal pain, constipation, cough or wheezing. - Time Spent with Patient Total time spent providing and/or coordinating discharge services: - Discharge Medications Home Medications: Aspirin [Lo-Dose Aspirin EC] 81 mg PO DAILY 02/21/18 [History] Atorvastatin Calcium [Lipitor] 80 mg PO HS 02/21/18 [History] Clopidogrel [Plavix] 75 mg PO DAILY 02/21/18 [History] Diltiazem CD (24hr) [Cardizem CD] 240 mg PO DAILY 02/21/18 [History] Ergocalciferol (VITAMIN D2) [Vitamin D2] 5,000 unit PO DAILY 02/21/18 [History] Ergocalciferol (VITAMIN D2) [Vitamin D2] 5,000 unit PO DAILY 02/21/18 [History] Metoprolol Succinate [Toprol Xl] 100 mg PO DAILY 02/21/18 [History] Pantoprazole Sodium [Protonix] 40 mg PO DAILY 02/21/18 [History] Tamsulosin HCl [Flomax] 0.4 mg PO DAILY 02/21/18 [History] Allergies/Adverse Reactions: Allergy/AdvReac Type Severity Reaction Status Date / Time No Known Allergies Allergy Verified 02/21/18 17:51 Date of admission: 02/22/18 15:16 Primary care physician: Jeannie Au MD Consults: 02/21/18 20:03 Consult to Neurology [CONS] Stat Consulting Provider: [facility] Reason for Consult: cerebellar infarct Call Completed: Yes 02/21/18 20:28 Consult to Neurology [CONS] Stat Consulting Provider: [facility] Reason for Consult: punctate cerebellum infarct Time Notified: 20:29 Call Completed: Yes - Constitutional Vitals: Temp Pulse Resp BP Pulse Ox 98.5 F 70 17 139/60 94 02/23/18 07:15 02/23/18 07:15 02/23/18 07:15 02/23/18 07:15 02/23/18 07:15 General appearance: Present: A&O X 3, no acute distress - Respiratory Respiratory exam: Present: CTAB. Absent: wheezes - Cardiovascular Cardiovascular exam: Present: RRR, +S1, +S2. Absent: diastolic murmur, systolic murmur - GI/Abdominal GI/Abdominal exam: Present: normal bowel sounds, soft. Absent: distended, tenderness - Extremities Exam Additional comments: no leg edema bilaterally - Neurological Exam Neurological exam: Present: CN II-XII intact Additional comments: 5/5 strength in UE bilaterally - Skin Skin exam: Present: dry, warm - Patient Status Condition: Good - Discharge Instructions Instructions: How to Stop Smoking (DC), Ischemic Stroke (DC), Chronic Hyperte nsion (DC), Self Care Measures After a Stroke (DC) Follow Up With: Jeannie Au MD [Primary Care Provider] -
[2018-02-23 11:52] LABS: Basophils # 0.1 K/mcL (0.0-0.2); Basophils % 0.6 %; Eosinophils # 0.3 K/mcL (0.0-0.6); Eosinophils % 3.6 %; Hematocrit 38.7 % (37.5-50.1); Hemoglobin 12.4 g/dL (12.9-16.9); Immature Granulocytes % 0.3 % (0-4); Lymphocytes # 2.5 K/mcL (0.6-4.6); Lymphocytes % 28.4 %; Mean Corpuscular Hemoglobin 27.3 pg (28.0-33.3); Mean Corpuscular Volume 85.2 fL (83.0-100.0); Mean Platelet Volume 12.6 fL (9.4-12.4); Monocytes # 0.7 K/mcL (0.0-1.3); Monocytes % 7.6 %; Neutrophils # 5.2 K/mcL (1.6-8.9); Platelet Count 199 K/mcL (140-400); Red Blood Count 4.54 M/mcL (4.19-5.50); Red Cell Distribution Width 15.6 % (11.5-14.5); Segmented Neutrophils % 59.5 %
[2018-02-23 12:16] LABS: Potassium 4.2 mEq/L (3.5-5.1)
--- NOTE | 2018-02-23 13:49 | Internal Med Progress Note ---
<Mendez Shelley - Last Filed: 02/23/18 17:20> Hospitalist Progress Note - Encounter Date of Encounter: 02/23/18 - Exam Vitals: Temp Pulse Resp BP Pulse Ox 98 F 52 19 133/81 96 02/23/18 15:23 02/23/18 15:23 02/23/18 15:23 02/23/18 15:23 02/23/18 15:23 Exam: General: Alert, Oriented X3, NAD HEENT: normocephalic, atraumatic, eyes anicteric, mucosal membranes moist, neck supple Cardiovascular: RRR, +S1, +S2, no murmurs Respiratory: CTAB, no wheezing Abdomen: normal BSX4, soft, nondistended, nontender to palpation Extremities: no leg edema bilaterally Neuro: CN2-12 grossly intact, 5/5 strength of UE bilaterally, grossly sensation or extremities equal bilaterally. chronic left lower sided facial droop according to pt Skin: dry, warm, intact - Assessment and Plan (1) Dizziness Current Visit: Yes Status: Acute (2) Cerebellar infarct Current Visit: Yes Status: Acute (3) BERTHA (acute kidney injury) Current Visit: Yes Status: Acute (4) Current nicotine use Current Visit: Yes Status: Acute (5) Hypertension Current Visit: Yes Status: Acute (6) Opacity of lung on imaging study Current Visit: Yes Status: Acute (7) DVT prophylaxis Current Visit: Yes Status: Acute DVT Prophylaxis: Heparin SQ - Summary of Assessment and Plan Summary of Assessment and Plan: Plan was to discharge patient today, but this evening having bradycardia. Will follow overnight and can likely be discharged in the AM. - Time Spent with Patient Total time spent is greater than 50% in coordination of care (as documented) at patient's floor/unit and/or counseling patient: less than 15 minutes Plan of Care Discussed with: patient Internal Medicine: Result - Labs CBC & Chem 7: 02/23/18 11:37 02/23/18 11:37 Labs: Short CBC 02/23/18 Range/Units 11:37 WBC 8.7 (4.3-11.1) K/mcL Hgb 12.4 L (12.9-16.9) g/dL Hct 38.7 (37.5-50.1) % Plt Count 199 (140-400) K/mcL Neutrophils # 5.2 (1.6-8.9) K/mcL BMP 02/23/18 11:37 Sodium 138 Potassium 4.2 Chloride 108 H Carbon Dioxide 23 BUN 28 H Creatinine 1.79 H Glucose 93 Calcium 9.0 - ABG Interpretation ABG results: PT/INR, D-dimer PT 12.0 Seconds (9.4-12.1) 02/21/18 17:44 - Impressions Impressions Echocardiogram 02/22/18 06:18 Impressions: LVEF 40%. Global and regional LV systolic function. Mild left ventricular diastolic dysfunction. Normal right ventricular structure and function. Mild mitral regurgitation. Mild aortic regurgitation. Mild tricuspid regurgitation. Mild pulmonic regurgitation. No pulmonary hypertension. No evidence of PFO with agitated saline contrast. Left Ventricular Wall Motion: Rest Echo Findings The apex, apical inferior, mid inferior, basal inferior, apical anterior, mid anterior, basal anterior, apical septal, mid inferior septal, basal inferior septal, apical lateral, mid anterior lateral, basal anterior lateral, mid anterior septal, mid inferior lateral, basal anterior septal and basal inferior lateral mittal were hypokinetic. Findings: Study Quality * Technically adequate exam. ECG Findings * Normal sinus rhythm. Left Ventricle * Mild left ventricular diastolic dysfunction. * LVEF 40%. * Normal LV chamber size and wall thickness. Right Ventricle * Normal right ventricular structure and function. Left Atrium * Severely dilated left atrium. Right Atrium * Mildly dilated right atrium. Mitral Valve * Normal mitral valve structure. * No mitral stenosis. * Mild mitral annular calcification * Mild mitral regurgitation. Aortic Valve * Mild aortic regurgitation. * Trileaflet aortic valve. * No aortic stenosis. Tricuspid Valve * Mild tricuspid regurgitation. * Normal tricuspid valve structure. * Estimated RA pressure is 3 mmHg. * Estimated RVSP is 31 mmHg. * No pulmonary hypertension. Pulmonic Valve * Pulmonic valve is not well visualized. * No pulmonic stenosis. * Mild pulmonic regurgitation. Pulmonary Artery * Pulmonary artery not well visualized. Aorta * Normally sized aortic root. Pericardium * There is no pericardial effusion present. Interatrial Septum * No evidence of PFO by color Doppler. * No evidence of PFO with agitated saline contrast. IVC * Normal IVC dimensions and inspiratory collapse. Chest X-Ray 02/22/18 07:39 IMPRESSION: Less evident reticulonodular changes at the lung bases possibly due to a better inspiration. However, there is persistent opacification at the left lung base which could represent atelectasis or pneumonia. D/ / 02/22/2018 16:00:47 French Arguello MD / kinjal Interpreting Provider: French Arguello MD Consult Discharge Plan - Plan Instructions: How to Stop Smoking (DC), Ischemic Stroke (DC), Chronic Hypertension (DC), Self Care Measures After a Stroke (DC) Referrals: Jeannie Au MD [Primary Care Provider] - <Kaya Baltazar - Last Filed: 02/23/18 17:25> Hospitalist Progress Note - Encounter Date of Encounter: 02/23/18 Time of Encounter: 08:45 - Subjective Interval History: Mr. Cancino is a 77 year old male. Hospital day 1. Pt has a chronic h/o HLD, HTN, CAD and previous KS. He presented intially to [facility] ED c/o dizziness. CT of the head and EKG were performed at [facility] and were normal. [facility] for the same complaint of dizziness. He admitted to falling that morning and hitting his head on the way down. A CT of the head was performed and was negative. A brain MRI showed acute punctate lacunar infarct in the Right cerebellum without hemmorhage. Neurology was consulted and stated that the right cerebellar infarct was too small to be symptomatic and attributed the dizziness to uncontrolled HTN. Echocardiography was performed and revealed mild LV diastolic dysfunction, and mild valvular regurgitation in all 4 main cardiac valves. Carotid doppler showed minimal plaque throughout bilaterally. Chest X ray showed interstitial nodular opacities in bilateral lower lobes which have improved. LLL infiltrate was also seen. On initial lab work BUN and Cr were elevated most likely secondary to dehydration. Pt received 2L of IVF. Cr improved to 1.79 from 1.81, BUN remains unchanged at 28. Today the patient states he is doing well and denies fever, H/A, vision changes, numbness, weakness, dizziness, SOB, chest pain/pressure, diaphoresis, NVD, abdominal pain, constipation, cough or wheezing. Pt experienced asymptomatic bradycardia(pulse 52) in the afternoon d/t receiving cardizem and toprol yesterday. - Exam Vitals: Temp Pulse Resp BP Pulse Ox 97.6 F 50 17 146/87 95 02/23/18 11:04 02/23/18 11:04 02/23/18 11:04 02/23/18 11:04 02/23/18 11:04 Exam: General: AAOX3, NAD Cardiovascular: RRR, +S1, +S2, no murmurs Respiratory: CTAB, no wheezing Abdomen: normal BSX4, soft, nondistended, nontedner to palpation Extremities: no leg edema bilaterally Neuro: CN2-12 grossly intact, 5/5 strength of UE bilaterally, chronic left lower sided facial droop according to pt (no h/o previous stroke) Skin: dry, warm - Assessment and Plan (1) Dizziness Current Visit: Yes Status: Acute Assessment and Plan: Most likely secondary to uncontrolled HTN according to neurology. Today pt denies any complaints of dizziness 02/23/18 BP was 192/98 during admission, BP today is 146/87 Plan -toprol and cardizem held today d/t bradycardia -continue to monitor BP and pulse rate -f/u outpatient with PCP (2) BERTHA (acute kidney injury) Current Visit: Yes Status: Acute Assessment and Plan: Cr on 02/21/18 was 1.81, Cr on 02/22/18 was 1.68, Cr today was 1.79 BUN on 02/21/18 was 28 and remained unchanged today GFR on 02/21/18 was 36, GFR on 02/22/18 was 40, GFR on 02/23/18 was 37 PTH was 52 Plan: -retroperitoneal U/S ordered -IVF d/c -avoid nephrotoxic medications (3) Cerebellar infarct Current Visit: Yes Status: Acute Assessment and Plan: Brain MRI showed acute punctate lacunar infarct in right cerebellum without hemorrhage. 02/21/18 Neuro was consulted and stated that the infarct is too small to be symptomatic and was likely d/t vasospasm from uncontrolled HTN 02/22/18 Carotid Doppler showed minimal plaque throughout bilaterally 02/22/18 Echocardiogram showed mild LV diastolic dysfunction, and mild valvular regurgitation in all four main cardiac valves, LVEF 40% (compared to previous echo remains the same) 02/22/18 Plan: -f/u PCP monitor stroke risk factors per neuro -continue ASA, plavix and statin (4) Current nicotine use Current Visit: Yes Status: Acute Assessment and Plan: Plan: -counseled to quit smoking (5) Opacity of lung on imaging study Current Visit: Yes Status: Acute Assessment and Plan: Chest Xray showed bibasilar interstitial nodular opacities 02/21/18 Repeat chest Xray showed less evident reticulonodular changes, LLL opacification also seen 02/22/18 Today pt denied any respiratory symptoms Plan: -f/u with PCP (6) Hypertension Current Visit: Yes Status: Acute Assessment and Plan: BP on 02/22/18 was 154/83, BP today was 146/87 pulse today was 50 Plan -cardizem d/c -toprol witheld d/t bradycardia -f/u PCP (7) DVT prophylaxis Current Visit: Yes Status: Acute Assessment and Plan: Plan: -Heparin SQ - Time Spent with Patient Total time spent is greater than 50% in coordination of care (as documented) at patient's floor/unit and/or counseling patient: Internal Medicine: Result - Labs CBC & Chem 7: 02/23/18 11:37 02/23/18 11:37 Labs: Short CBC 02/23/18 Range/Units 11:37 WBC 8.7 (4.3-11.1) K/mcL Hgb 12.4 L (12.9-16.9) g/dL Hct 38.7 (37.5-50.1) % Plt Count 199 (140-400) K/mcL Neutrophils # 5.2 (1.6-8.9) K/mcL BMP 02/23/18 11:37 Sodium 138 Potassium 4.2 Chloride 108 H Carbon Dioxide 23 BUN 28 H Creatinine 1.79 H Glucose 93 Calcium 9.0 - ABG Interpretation ABG results: PT/INR, D-dimer PT 12.0 Seconds (9.4-12.1) 02/21/18 17:44 - Impressions Impressions Echocardiogram 02/22/18 06:18 Impressions: LVEF 40%. Global and regional LV systolic function. Mild left ventricular diastolic dysfunction. Normal right ventricular structure and function. Mild mitral regurgitation. Mild aortic regurgitation. Mild tricuspid regurgitation. Mild pulmonic regurgitation. No pulmonary hypertension. No evidence of PFO with agitated saline contrast. Left Ventricular Wall Motion: Rest Echo Findings The apex, apical inferior, mid inferior, basal inferior, apical anterior, mid anterior, basal anterior, apical septal, mid inferior septal, basal inferior septal, apical lateral, mid anterior lateral, basal anterior lateral, mid anterior septal, mid inferior lateral, basal anterior septal and basal inferior lateral mittal were hypokinetic. Findings: Study Quality * Technically adequate exam. ECG Findings * Normal sinus rhythm. Left Ventricle * Mild left ventricular diastolic dysfunction. * LVEF 40%. * Normal LV chamber size and wall thickness. Right Ventricle * Normal right ventricular structure and function. Left Atrium * Severely dilated left atrium. Right Atrium * Mildly dilated right atrium. Mitral Valve * Normal mitral valve structure. * No mitral stenosis. * Mild mitral annular calcification * Mild mitral regurgitation. Aortic Valve * Mild aortic regurgitation. * Trileaflet aortic valve. * No aortic stenosis. Tricuspid Valve * Mild tricuspid regurgitation. * Normal tricuspid valve structure. * Estimated RA pressure is 3 mmHg. * Estimated RVSP is 31 mmHg. * No pulmonary hypertension. Pulmonic Valve * Pulmonic valve is not well visualized. * No pulmonic stenosis. * Mild pulmonic regurgitation. Pulmonary Artery * Pulmonary artery not well visualized. Aorta * Normally sized aortic root. Pericardium * There is no pericardial effusion present. Interatrial Septum * No evidence of PFO by color Doppler. * No evidence of PFO with agitated saline contrast. IVC * Normal IVC dimensions and inspiratory collapse. Chest X-Ray 02/22/18 07:39 IMPRESSION: Less evident reticulonodular changes at the lung bases possibly due to a better inspiration. However, there is persistent opacification at the left lung base which could represent atelectasis or pneumonia. D/ / 02/22/2018 16:00:47 French Arguello MD / kinjal Interpreting Provider: French Arguello MD <Cailin Goel - Last Filed: 02/23/18 17:42> Hospitalist Progress Note - Encounter Date of Encounter: 02/23/18 Time of Encounter: 17:37 - Exam Vitals: Temp Pulse Resp BP Pulse Ox 98 F 52 19 133/81 96 02/23/18 15:23 02/23/18 15:23 02/23/18 15:23 02/23/18 15:23 02/23/18 15:23 - Assessment and Plan (1) Cerebellar infarct Current Visit: Yes Status: Acute (2) BERTHA (acute kidney injury) Current Visit: Yes Status: Acute (3) DVT prophylaxis Current Visit: Yes Status: Acute (4) Current nicotine use Current Visit: Yes Status: Acute (5) Opacity of lung on imaging study Current Visit: Yes Status: Acute (6) Hypertension Current Visit: Yes Status: Acute - Time Spent with Patient Total time spent is greater than 50% in coordination of care (as documented) at patient's floor/unit and/or counseling patient: Internal Medicine: Result - Labs CBC & Chem 7: 02/23/18 11:37 02/23/18 11:37 Labs: Short CBC 02/23/18 Range/Units 11:37 WBC 8.7 (4.3-11.1) K/mcL Hgb 12.4 L (12.9-16.9) g/dL Hct 38.7 (37.5-50.1) % Plt Count 199 (140-400) K/mcL Neutrophils # 5.2 (1.6-8.9) K/mcL BMP 02/23/18 11:37 Sodium 138 Potassium 4.2 Chloride 108 H Carbon Dioxide 23 BUN 28 H Creatinine 1.79 H Glucose 93 Calcium 9.0 - ABG Interpretation ABG results: PT/INR, D-dimer PT 12.0 Seconds (9.4-12.1) 02/21/18 17:44 - Impressions Impressions Echocardiogram 02/22/18 06:18 Impressions: LVEF 40%. Global and regional LV systolic function. Mild left ventricular diastolic dysfunction. Normal right ventricular structure and function. Mild mitral regurgitation. Mild aortic regurgitation. Mild tricuspid regurgitation. Mild pulmonic regurgitation. No pulmonary hypertension. No evidence of PFO with agitated saline contrast. Left Ventricular Wall Motion: Rest Echo Findings The apex, apical inferior, mid inferior, basal inferior, apical anterior, mid anterior, basal anterior, apical septal, mid inferior septal, basal inferior septal, apical lateral, mid anterior lateral, basal anterior lateral, mid anterior septal, mid inferior lateral, basal anterior septal and basal inferior lateral mittal were hypokinetic. Findings: Study Quality * Technically adequate exam. ECG Findings * Normal sinus rhythm. Left Ventricle * Mild left ventricular diastolic dysfunction. * LVEF 40%. * Normal LV chamber size and wall thickness. Right Ventricle * Normal right ventricular structure and function. Left Atrium * Severely dilated left atrium. Right Atrium * Mildly dilated right atrium. Mitral Valve * Normal mitral valve structure. * No mitral stenosis. * Mild mitral annular calcification * Mild mitral regurgitation. Aortic Valve * Mild aortic regurgitation. * Trileaflet aortic valve. * No aortic stenosis. Tricuspid Valve * Mild tricuspid regurgitation. * Normal tricuspid valve structure. * Estimated RA pressure is 3 mmHg. * Estimated RVSP is 31 mmHg. * No pulmonary hypertension. Pulmonic Valve * Pulmonic valve is not well visualized. * No pulmonic stenosis. * Mild pulmonic regurgitation. Pulmonary Artery * Pulmonary artery not well visualized. Aorta * Normally sized aortic root. Pericardium * There is no pericardial effusion present. Interatrial Septum * No evidence of PFO by color Doppler. * No evidence of PFO with agitated saline contrast. IVC * Normal IVC dimensions and inspiratory collapse. Chest X-Ray 02/22/18 07:39 IMPRESSION: Less evident reticulonodular changes at the lung bases possibly due to a better inspiration. However, there is persistent opacification at the left lung base which could represent atelectasis or pneumonia. D/ / 02/22/2018 16:00:47 French Arguello MD / kinjal Interpreting Provider: French Arguello MD Retroperitoneum Ultrasound 02/23/18 08:30 IMPRESSION: Unremarkable ultrasound of the kidneys. D/ / Breezy Hess / Breezy Hess Interpreting Provider: Breezy Hess - Attending Attestation I saw evaluated and examined this patient and my medical decision-making was reviewed with the Resident Physician, Mendez Shelley. I agree with the documented findings, disposition and treatment plan as described except to any changes set forth below. We independently had [id number] contact with the patient. Patient is doing better today. Denies any new complaints at this time. No focal weakness or numbness. No nausea or vomiting. No chest pain. Denies any dizziness or lightheadedness. Patient has been bradycardic this morning and his metoprolol and Cardizem have been held. She does have good urine output. On examination, patient has left sided facial droop with tongue remaining exposed. Heart sounds are normal. Patient does have bradycardia. Abdomen is soft, nontender. Lungs are clear to auscultation. Acute cerebellar infarct: Neurology following. Per their recommendations, patient is on aspirin, Plavix and statin. Patient has been evaluated by physical therapy and recommended home health. Sinus bradycardia: Most likely medication related. Will stop Cardizem. Continue metoprolol but monitor heart rate closely. Hold metoprolol if heart rate remains less than 60. TSH normal. Acute kidney injury/chronic kidney disease: Creatinine 1.79 today. Will gently hydrate patient. Follow renal function. Essential hypertension: Better Controlled. DVT prophylaxis with subcutaneous heparin. <Shelley,Mendez Alvarez - Last Filed: 02/23/18 17:20> (5) Hypertension Qualifiers: Hypertension type: essential hypertension Qualified Code(s): I10 - Essential (primary) hypertension <Kaya Baltazar - Last Filed: 02/23/18 17:25> (6) Hypertension Qualifiers: Hypertension type: essential hypertension Qualified Code(s): I10 - Essential (primary) hypertension <Cailin Goel - Last Filed: 02/23/18 17:42> (6) Hypertension Qualifiers: Hypertension type: essential hypertension Qualified Code(s): I10 - Essential (primary) hypertension
[2018-02-23 14:44] LABS: Thyroid Stimulating Hormone 1.63 mcIU/mL (0.340-5.600)
[2018-02-23] MEDS ORDERED: Ringers Solution, Lactated 1,000 ML IVC SCH (17:45)
[2018-02-24] MEDS: *HR* Heparin 5,000 UNIT/ML VIAL SQ SCH (06:23)
[2018-02-24 07:25] VITALS: BP 155/101
[2018-02-24] MEDS ORDERED: Metoprolol XL (24 HR) Succ 25 MG TAB.ER.24H PO SCH (09:00)
[2018-02-24] MEDS: Cholecalciferol (D-3) 1,000 UNIT TABLET PO SCH (09:47)
[2018-02-24] MEDS: Aspirin Enteric Coated 81 MG Tablet PO SCH (09:48)
--- NOTE | 2018-02-24 10:32 | Discharge Summary ---
<Denny Simpson S - Last Filed: 02/24/18 11:20> - NOTES TO OUTPATIENT PROVIDER Notes to Outpatient Provider: Follow up on heart rate, pt consistently had HR in the 50's without symptoms. Follow up for refills of Plavix, Toprol, and Zestril. Date of Encounter: 02/24/18 Time of Encounter: 10:30 - Discharge Diagnosis (1) Cerebellar infarct Priority: Primary Status: Acute (2) BERTHA (acute kidney injury) Priority: Secondary Status: Acute (3) DVT prophylaxis Priority: Secondary Status: Acute (4) Current nicotine use Priority: Secondary Status: Chronic (5) Opacity of lung on imaging study Priority: Secondary Status: Acute (6) Hypertension Priority: Secondary Status: Chronic Qualifiers: Hypertension type: essential hypertension Qualified Code(s): I10 - Essential (primary) hypertension (7) GERD (gastroesophageal reflux disease) Priority: Secondary Status: Chronic Qualifiers: Esophagitis presence: esophagitis presence not specified Qualified Code(s): K21.9 - Gastro-esophageal reflux disease without esophagitis (8) BPH (benign prostatic hyperplasia) Priority: Secondary Status: Chronic Qualifiers: Lower urinary tract symptom presence: symptoms present Lower urinary tract symptom detail: unspecified Qualified Code(s): N40.1 - Benign prostatic hyperplasia with lower urinary tract symptoms Hospital course: Mr. Cancino is a 77 year old male PMH of hyperlipidemia, hypertension, and CAD on ASA and Plavix pt presented to the emergency room with initial complaints of dizziness. He was seen at [facility] and CT was completed, which were reported as normal. At [facility] he continued to have dizziness and had several falls that morning. He states he hit his head when he got out of bed but denied LOC. He endorsed weakness. Head CT was negative for acute intra cranial abnormalitis. Brain MRI showed acute punctate lacunar infarction in the right cerebellum with no hemorrhage. Neurology was consulted and they feel the primary reason for dizziness is uncontrolled htn. Pt BP as high as 192's systolic on admission - no nystagmus - no vertigo - they felt the infarct too small to be symptomatic and that vasospasm 2/2 HTN was the reason for his s/s - pt does have multiple RF for future stroke including HDL, HTN, CAD and smoking ECHO showed - LVEF 40% - LV diastolic dysfxn Pt is stable for discharge - toprol will be decreased to 12.5 mg PO daily - lisinopril added 10mg daily - pt advised to montior HR and BP and call with any problems - follow up with PCP in one week - pt should have risk factor management to prevent stroke/TIA - will d/c with Plavix for one month Discharge discussed with: patient Time spent discussing smoking cessation with patient: 3 to 10 minutes - Time Spent with Patient Total time spent providing and/or coordinating discharge services: Less than 30 minutes - Discharge Medications Prescriptions: Clopidogrel [Plavix] 75 mg PO DAILY 30 Days #30 tablet Lisinopril [Zestril] 10 mg PO DAILY 30 Days #30 tablet Metoprolol XL (24 HR) Succ [Toprol Xl] 12.5 mg PO DAILY 30 Days #30 tab.er.24h Home Medications: Aspirin [Lo-Dose Aspirin EC] 81 mg PO DAILY 02/21/18 [History] Atorvastatin Calcium [Lipitor] 80 mg PO HS 02/21/18 [History] Ergocalciferol (VITAMIN D2) [Vitamin D2] 5,000 unit PO DAILY 02/21/18 [History] Ergocalciferol (VITAMIN D2) [Vitamin D2] 5,000 unit PO DAILY 02/21/18 [History] Pantoprazole Sodium [Protonix] 40 mg PO DAILY 02/21/18 [History] Tamsulosin HCl [Flomax] 0.4 mg PO DAILY 02/21/18 [History] Clopidogrel [Plavix] 75 mg PO DAILY 30 Days #30 tablet 02/24/18 [Rx] Lisinopril [Zestril] 10 mg PO DAILY 30 Days #30 tablet 02/24/18 [Rx] Metoprolol XL (24 HR) Succ [Toprol Xl] 12.5 mg PO DAILY 30 Days #30 tab.er.24h 02/24/18 [Rx] Allergies/Adverse Reactions: Allergy/AdvReac Type Severity Reaction Status Date / Time No Known Allergies Allergy Verified 02/21/18 17:51 Date of admission: 02/22/18 15:16 Primary care physician: Jeannie Au MD Consults: 02/21/18 20:03 Consult to Neurology [CONS] Stat Consulting Provider: [facility] Reason for Consult: cerebellar infarct Call Completed: Yes 02/21/18 20:28 Consult to Neurology [CONS] Stat Consulting Provider: [facility] Reason for Consult: punctate cerebellum infarct Time Notified: 20:29 Call Completed: Yes Discharging clinician: Denny Simpson Anticipated date of discharge: 02/24/18 - Constitutional Vitals: Temp Pulse Resp BP Pulse Ox 98.3 F 54 16 155/101 98 02/24/18 00:00 02/24/18 07:23 02/24/18 00:00 02/24/18 07:23 02/24/18 00:00 General appearance: Present: A&O X 3, no acute distress Exam: General - AOx3, NAD, eating breakfast heent - NCAT, moist mucus membranes cardio - bradycardia, s1s2, no MRG lungs - ctab, no wheeze/rhonchi abd - nontender, mildly obese, no rebound or guarding skin - intact, no open wound MSK - normal strength neuro - no FND CN2-12 grossly intact psych - appropriate mood and affect - Patient Status Disposition: Home, Self-Care Condition: Good Functional capacity at discharge: independent ambulation Overall status at discharge: patient is progressing back to baseline - Discharge Instructions Instructions: Metoprolol (By mouth), Lisinopril (By mouth), Clopidogrel (By mouth), How to Stop Smoking (DC), Ischemic Stroke (DC), Chronic Hypertension (DC), Self Care Measures After a Stroke (DC), Bradycardia (DC) Follow Up With: Jeannie Au MD [Primary Care Provider] - 03/01/18 - Diet and Activity Activity: increase activity as tolerated Diet: advance to your usual diet <Cailin Goel - Last Filed: 02/24/18 13:26> Date of Encounter: 02/24/18 Time of Encounter: 13:23 - Discharge Diagnosis (1) Cerebellar infarct Status: Acute (2) BERTHA (acute kidney injury) Status: Acute (3) DVT prophylaxis Status: Acute (4) Current nicotine use Status: Chronic (5) Opacity of lung on imaging study Status: Acute (6) Hypertension Status: Chronic Qualifiers: Hypertension type: essential hypertension Qualified Code(s): I10 - Essential (primary) hypertension (7) GERD (gastroesophageal reflux disease) Status: Chronic Qualifiers: Esophagitis presence: esophagitis presence not specified Qualified Code(s): K21.9 - Gastro-esophageal reflux disease without esophagitis (8) BPH (benign prostatic hyperplasia) Status: Chronic Qualifiers: Lower urinary tract symptom presence: symptoms present Lower urinary tract symptom detail: unspecified Qualified Code(s): N40.1 - Benign prostatic h yperplasia with lower urinary tract symptoms Hospital course: Mr. Cancino is a 77 year old male - Time Spent with Patient Total time spent providing and/or coordinating discharge services: Less than 30 minutes (12 min) Date of admission: 02/22/18 15:16 Primary care physician: Jeannie Au MD Consults: 02/21/18 20:03 Consult to Neurology [CONS] Stat Consulting Provider: [facility] Reason for Consult: cerebellar infarct Call Completed: Yes 02/21/18 20:28 Consult to Neurology [CONS] Stat Consulting Provider: [facility] Reason for Consult: punctate cerebellum infarct Time Notified: 20:29 Call Completed: Yes - Constitutional Vitals: Temp Pulse Resp BP Pulse Ox 98.3 F 54 16 155/101 98 02/24/18 00:00 02/24/18 07:23 02/24/18 00:00 02/24/18 07:23 02/24/18 00:00 - Attending Attestation I saw evaluated and examined this patient and my medical decision-making was reviewed with the Resident Physician, Denny Simpson. I agree with the documented findings, disposition and treatment plan as described except to any changes set forth below. We independently had [id number] contact with the patient. Patient hospitalized after presenting with symptoms of dizziness and was diagnosed with acute cerebellar infarct per MRI. Neurology was consulted. Patient also had signs of renal dysfunction but according to his family he also has chronic kidney disease. Urology evaluated patient. Recommended better control of his blood pressure. During patient's stay here, he was found to be bradycardic. Patient's home medications list Cardizem 240 and metoprolol XL 100. He was receiving these medications here and was bradycardic. As such Cardizem has been stopped and metoprolol dosage has been decreased as patient's heart rate has remained in the 50s. He is also been placed on lisinopril for better control of his blood pressure. Needs close follow-up with his primary care provider for further management. On examination today patient is awake and alert. 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
== END 2018-02-24 12:22 | disposition home or self-care (01) | DRG 65 ==
LOC: EMEROOARM 17:26 → 2NENU 17:26 → SUATTDRO 02-22 15:16
PROVIDERS: ADMIT Pediatrics; ATTEND Internal Medicine